=== PATIENT | female | born 2000 | race Caucasian/White ===

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

== ENCOUNTER 2022-09-20 12:45 | Outpatient (RCR) | payer BC | END 2022-09-30 | disposition home or self-care (01) | LOC: WSC | DX: M54.16 Radiculopathy, lumbar region (principal); G90.522 Complex regional pain syndrome I of left lower limb ==

== ENCOUNTER 2023-03-24 15:45 | Outpatient (RCR) | payer BC | END 2023-03-30 | disposition home or self-care (01) | LOC: WSPT | DX: M54.16 Radiculopathy, lumbar region (principal); G90.522 Complex regional pain syndrome I of left lower limb ==

== ENCOUNTER → 2023-07-31 | Outpatient (RCR) | payer BC | END | disposition home or self-care (01) | LOC: WSPT | DX: M54.16 Radiculopathy, lumbar region (principal); G90.522 Complex regional pain syndrome I of left lower limb ==

== ENCOUNTER 2023-08-27 13:45 | Outpatient (RCR) | payer BC | END 2023-08-30 | disposition home or self-care (01) | LOC: WSPT | DX: M54.16 Radiculopathy, lumbar region (principal); G90.522 Complex regional pain syndrome I of left lower limb ==

== ENCOUNTER → 2023-10-30 | Outpatient (RCR) | payer BC | END | disposition home or self-care (01) | LOC: WSPT | DX: M54.16 Radiculopathy, lumbar region (principal); G90.522 Complex regional pain syndrome I of left lower limb ==

== ENCOUNTER 2023-11-19 11:15 | Outpatient (RCR) | payer BC | END 2023-11-30 | disposition home or self-care (01) | LOC: WSPT | DX: M54.16 Radiculopathy, lumbar region (principal); G90.522 Complex regional pain syndrome I of left lower limb ==

== ENCOUNTER 2023-12-29 09:45 | Outpatient (RCR) | payer BC | END 2023-12-31 | disposition home or self-care (01) | LOC: WSPT | DX: M54.16 Radiculopathy, lumbar region (principal); G90.522 Complex regional pain syndrome I of left lower limb ==

== ENCOUNTER → 2024-01-29 | Outpatient (RCR) | payer BC | END | disposition home or self-care (01) | LOC: WSPT | DX: M54.16 Radiculopathy, lumbar region (principal); G90.522 Complex regional pain syndrome I of left lower limb ==

== ENCOUNTER 2024-02-26 09:00 | Outpatient (RCR) | payer BC | END 2024-02-29 | disposition home or self-care (01) | LOC: WSPT | DX: M54.16 Radiculopathy, lumbar region (principal); G90.522 Complex regional pain syndrome I of left lower limb ==